=== PATIENT | female | born 2000 | race American Indian/Alaskan Native ===

== ENCOUNTER 2022-02-22 17:15 | Emergency (ER) | payer OTHER ==
[2022-02-22 17:48] VITALS: BP 134/90
[2022-02-22] MEDS ORDERED: AMOXICILLIN/K CLAV 875/125MG TAB PO ONE (18:45)
[2022-02-22] MEDS ORDERED: KETOROLAC 10 MG TAB PO ONE (18:45)
--- NOTE | 2022-02-22 18:48 | Emergency Department Report ---
ED Review of Systems ROS: Stated complaint: SWOLLEN GUM AND JAW ON LEFT SIDE Other details as noted in HPI ED Past Medical Hx - Past Medical History Previous Medical History?: No - Surgical History Past Surgical History?: No - Social History Smoking Status: Never Smoker Substance Use Type: None Eye Injury Exam - Exam General: Vital signs noted. No distress. Alert and acting appropriately. ED Course Vital Signs 02/22/22 02/22/22 17:41 18:20 Temperature 99.3 F Pulse Rate 95 H Respiratory 16 18 Rate Blood Pressure 134/90 [Left] O2 Sat by Pulse 100 97 Oximetry Critical care attestation.: If time is entered above; I have spent that time in minutes in the direct care of this critically ill patient, excluding procedure time. ED Disposition Condition: Stable Referrals: PRIMARY CARE, [Primary Care Provider] - 3-5 Days
--- NOTE | 2022-02-22 18:54 | Emergency Department Report ---
ED ENT HPI - General Chief complaint: Dental/Oral Stated complaint: SWOLLEN GUM AND JAW ON LEFT SIDE Time Seen by Provider: 02/22/22 18:27 Source: patient Mode of arrival: Ambulatory Limitations: No Limitations - History of Present Illness Initial comments: 21-year-old black female with no past medical history presents to the emergency department for evaluation of right facial and gum swelling. She states that pain and swelling started 4 days ago, and pain has gotten some better but swelling has gotten progressively worse. She denies fever. She states that she was seen at the dentist today but they sent her to the ER because they stated she needed to come here to get antibiotics. MD complaint: tooth pain, other (Jaw swelling) -: Gradual, days(s) (4) Location: tooth # Severity: mild, moderate (31) Severity scale (0 -10): 4 Quality: aching Consistency: constant - Related Data Previous Rx's Medication Instructions Recorded Last Taken Type Amoxicillin/K Clav Tab [Augmentin 1 tab PO Q12HR 7 Days #14 tab 02/22/22 Unknown Rx 875 mg] Ketorolac [Toradol] 10 mg PO Q6H PRN #12 tab 02/22/22 Unknown Rx Allergies Allergy/AdvReac Type Severity Reaction Status Date / Time No Known Allergies Allergy Unverified 02/22/22 17:48 ED Dental HPI - General Chief complaint: Dental/Oral Stated complaint: SWOLLEN GUM AND JAW ON LEFT SIDE Time Seen by Provider: 02/22/22 18:27 Source: patient Mode of arrival: Ambulatory Limitations: No Limitations - Related Data Previous Rx's Medication Instructions Recorded Last Taken Type Amoxicillin/K Clav Tab [Augmentin 1 tab PO Q12HR 7 Days #14 tab 02/22/22 Unknown Rx 875 mg] Ketorolac [Toradol] 10 mg PO Q6H PRN #12 tab 02/22/22 Unknown Rx Allergies Allergy/AdvReac Type Severity Reaction Status Date / Time No Known Allergies Allergy Unverified 02/22/22 17:48 ED Review of Systems ROS: Stated complaint: SWOLLEN GUM AND JAW ON LEFT SIDE Other details as noted in HPI Comment: All other systems reviewed and negative Constitutional: denies: chills, fever Eyes: denies: vision change ENT: dental pain Respiratory: denies: shortness of breath Cardiovascular: denies: chest pain Gastrointestinal: denies: abdominal pain, nausea, vomiting Musculoskeletal: denies: back pain Neurological: denies: headache ED Past Medical Hx - Past Medical History Previous Medical History?: No - Surgical History Past Surgical History?: No - Social History Smoking Status: Never Smoker Substance Use Type: None - Medications Home Medications: Home Medications Medication Instructions Recorded Confirmed Last Taken Type Amoxicillin/K Clav Tab [Augmentin 1 tab PO Q12HR 7 Days #14 tab 02/22/22 Unknown Rx 875 mg] Ketorolac [Toradol] 10 mg PO Q6H PRN #12 tab 02/22/22 Unknown Rx ED Physical Exam - General Limitations: No Limitations General appearance: alert, in no apparent distress - Head Head exam: Present: atraumatic, normocephalic - Eye Eye exam: Present: normal appearance - Expanded ENT Exam Expanded Teeth exam: Present: dental tenderness # (31), other (Swelling, erythema, and abscess noted to gums around tooth #31) - Neck Neck exam: Present: normal inspection. Absent: tenderness, lymphadenopathy - Respiratory Respiratory exam: Absent: respiratory distress - Cardiovascular Cardiovascular Exam: Present: regular rate - GI/Abdominal GI/Abdominal exam: Absent: distended - Extremities Exam Extremities exam: Present: normal inspection - Back Exam Back exam: Present: normal inspection - Neurological Exam Neurological exam: Present: alert, oriented X3 - Psychiatric Psychiatric exam: Present: normal affect, normal mood - Skin Skin exam: Present: warm, dry, intact, normal color ED Course Vital Signs 02/22/22 02/22/22 17:41 18:20 Temperature 99.3 F Pulse Rate 95 H Respiratory 16 18 Rate Blood Pressure 134/90 [Left] O2 Sat by Pulse 100 97 Oximetry ED Medical Decision Making - Medical Decision Making 21-year-old black female with no past medical history presents to the emergency department for evaluation of right facial and gum swelling. She states that pain and swelling started 4 days ago, and pain has gotten some better but swelling has gotten progressively worse. She denies fever. She states that she was seen at the dentist today but they sent her to the ER because they stated she needed to come here to get antibiotics. Physical exam consistent with dental abscess. Patient be discharged home with Augmentin and Toradol to use as directed and advised to follow-up with dentist for further evaluation and management. She is advised to return to the emergency department as needed. She verbalizes understanding of and agreement with plan of care. Critical care attestation.: If time is entered above; I have spent that time in minutes in the direct care of this critically ill patient, excluding procedure time. ED Disposition Clinical Impression: Dental abscess Disposition: HOME / SELF CARE / HOMELESS Is pt being admited?: No Does the pt Need Aspirin: No Condition: Stable Instructions: Dental Abscess, [id number] Additional Instructions: Take medications as prescribed. Follow-up with dentist for further evaluation and management. Return to the emergency department as needed. Prescriptions: Amoxicillin/K Clav Tab [Augmentin 875 mg] 1 tab PO Q12HR 7 Days #14 tab Ketorolac [Toradol] 10 mg PO Q6H PRN #12 tab PRN Reason: Pain Referrals: [facility] [Outside] - 3-5 Days [facility] [Outside] - 3-5 Days Forms: Work/School Release Form(ED) Time of Disposition: 18:54
== END 2022-02-22 19:00 | disposition home or self-care (01) ==
LOC: ED 17:15
DX: K04.7 Periapical abscess without sinus (principal); Z79.899 Other long term (current) drug therapy
CPT/HCPCS: 99282